=== PATIENT | male | born 1995 | race Caucasian/White ===

== ENCOUNTER 2018-05-31 23:01 | Emergency (ER) | payer MEDICAID, SELFPAY ==
[2018-05-31 23:18] VITALS: BP 139/73; PULSE 94; RESP 16; TEMP 37; O2SAT 100
[2018-05-31] MEDS: Cyclobenzaprine 10 MG TAB PO (23:40)
[2018-05-31] MEDS: Acetaminophen 500 MG TAB 1000 MG PO (23:40)
[2018-05-31] MEDS: Ketorolac 30 MG/ML VIAL IM (23:41)
[2018-05-31] MEDS: Dexamethasone 10 MG/ML VIAL IM (23:41)
[2018-05-31] MEDS: Lidocaine 5% Patch 1 PATCH TP (23:42)
--- NOTE | 2018-06-01 00:29 | ED.GENADUL_ITS ---
Discharge Plan Disposition Patient Disposition: HOME Condition: Stable Discharge Details Chief Complaint: Nk/Back Pain Clinical Impression: Lumbago, Pain in paraspinal region Primary Care Provider: NONE,NONE ED Provider: Messi Pennington Home Meds and New Rx's Prescriptions: New acetaminophen [Mapap Extra Strength] 500 MG tablet 1,000 mg PO Q6H 5 Days Qty: 60 RF: 0 lidocaine [Lidoderm] 1 PATCH patch 1 ea Topical Q24H Qty: 4 RF: 0 ibuprofen [Motrin IB] 200 MG tablet 800 mg PO Q6H 5 Days Qty: 80 RF: 0 cyclobenzaprine 10 mg tablet 10 mg PO TID Qty: 20 RF: 0 No Action pantoprazole 40 MG tablet,delayed release (DR/EC) 40 mg PO DAILY Qty: 30 RF: 0 sucralfate 1 GM/10 ML suspension 1 gm PO AC & HS Qty: 1 RF: 0 Discharge Instructions Instructions: Low Back Strain (ED) Additional Instructions: Please use a heating pad and ice on your back as often as possible. Please take medications as directed. When taking the Flexeril do not operate heavy machinery, drive vehicles, or operate firearms. Please perform regular daily stretches and massage to your lower back. Please avoid any heavy lifting greater than 10 pounds. If you notice any numbness or tingling, weakness, bowel or bladder loss of control, please return immediately. If you notice any worsening of your symptoms, or any new symptoms such as vomiting, diarrhea, fever, chills, shortness of breath, chest pain, numbness, weakness, or fainting , please return immediately to the emergency department for reevaluation. Please follow up with your primary care provider as soon as possible for reassessment and reevaluation. As always, it was a pleasure participating in your medical care today. Medical Decision Making This is a 22-year-old male with no significant past medical history who presents today for evaluation of back pain. Patient states that for the last 2-3 days he has had back pain in the paraspinal musculature area. 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 Physical exam demonstrates notable paraspinal spasms, no midline tenderness, no flank pain or CVA tenderness. He has no red flags of IV drug use, trauma, fever chills, urinary problems, abdominal pain, history of trauma or surgeries, saddle anesthesia, lower extremity weakness or decrease in his deep tendon reflex, decreased rectal tone or decreased rectal sensation. He demonstrates no signs of urinary retention on bladder scan with 6 mL's total after urinate. I feel his symptoms are secondary to musculoskeletal spasms secondary to his chronic work use. There are no red flags indicating imaging necessity at this time. Patient will be given a Lidoderm patch, Flexeril, Toradol, Decadron for management of his back pain. We discussed the importance of heating and ice, gentle stretching exercises, and close follow-up with PCP. We will set him up with a new primary care provider. The patient has had notable improvement with the medication given here, they feel he can be safely discharged home. We discussed red flags for which to return the patient understands. I have extensively reviewed the treatment plan and discharge instructions with the patient. I have addressed all patient concerns at this time. The patient was made aware of what symptoms to monitor for that would warrant a return to the emergency department. Discussed the plan with the patient, they demonstrate verbal understanding and agreement with our assessment and plan at this time. HPI General Date/Time Provider Initiated Documentation: 05/31/18 23:29 . HPI Narrative: This is a 22-year-old male with no significant past medical history who presents today for evaluation of back pain. He states that for the last 3-4 days he has had a gradual worsening lower back pain. The pain is located on the left and right of the spine, travels upwards, from his buttock and slightly downwards towards his thighs bilaterally. He states that he is on his feet all day at work as a artificial foliage arranger, and often lifts and moves around multiple objects throughout the day. His symptoms are worsened with movement, it is improved by nothing. It is not improved by sleeping or resting. He describes it is constant in nature. He does have some associated occasional tingling in the anterior and lateral thighs, but denies any numbness tingling in the groin region. He denies any bowel or bladder incontinence. He denies IV or illicit drug use. He denies any recent falls, traumas, or history of falls or traumas to the back. Patient does smoke marijuana and drink alcohol but denies any other illicit drug use. Patient denies any symptoms of fevers or chills, he denies any neck pain or neck tightness or stiffness. He denies any abdominal pain, dysuria, hematuria, or increased urinary frequency. He denies any previous surgeries, he has no other complaints at this time. He denies any pertinent family history. Related Data Home Medications Medication Instructions Recorded Confirmed pantoprazole 40 mg PO DAILY #30 tabcr 03/15/18 05/31/18 sucralfate 1 gm PO AC & HS #1 btl 03/15/18 05/31/18 acetaminophen [Mapap Extra 1,000 mg PO Q6H 5 Days #60 tab 06/01/18 Strength] cyclobenzaprine 10 mg PO TID #20 tab 06/01/18 ibuprofen [Motrin Ib] 800 mg PO Q6H 5 Days #80 tab 06/01/18 lidocaine [Lidoderm] 1 ea TOPICAL Q24H #4 patch 06/01/18 Previous Rx's Medication Instructions Recorded pantoprazole 40 mg PO DAILY #30 tabcr 03/15/18 sucralfate 1 gm PO AC & HS #1 btl 03/15/18 acetaminophen [Mapap Extra 1,000 mg PO Q6H 5 Days #60 tab 06/01/18 Strength] cyclobenzaprine 10 mg PO TID #20 tab 06/01/18 ibuprofen [Motrin Ib] 800 mg PO Q6H 5 Days #80 tab 06/01/18 lidocaine [Lidoderm] 1 ea TOPICAL Q24H #4 patch 06/01/18 Allergies Allergy/AdvReac Type Severity Reaction Status Date / Time No Known Allergies Allergy Unverified 05/31/18 23:25 General Stated Complaint: Nk/Back Pain MARY: 4 Review of Systems Review of Systems All systems reviewed & are unremarkable except as noted in HPI and below Exam Narrative Exam Narrative: 1.Const: Well-nourished, Well-developed, appearing stated age 2.Eyes: PERRL, no conjunctival injection, and symmetrical lids. 3.ENT: Atraumatic external nose and ears. Moist MM. Neck: Symmetric, trachea midline, No thyromegaly. 4.CVS: +S1/S2, No murmurs or gallops. Peripheral pulses 2+ and equal in all extremities. Brisk capillary refill in all extremities. 5.RESP: Unlabored respiratory effort. Clear to auscultation bilaterally. No wheezes rales or rhonchi 6.GI: Soft, Nontender/Nondistended, No hepatosplenomegaly. No guarding or rebound. 7.MSK: Normocephalic/Atraumatic, Extremities w/o deformity or ttp No cyanosis or clubbing, Normal movement of all extremities no midline tenderness to palpation over the CTLS spine. Normal ROM in flexion, extension, side bend, and rotation. Patient has +5 out of 5 strength in the lower extremities in dorsiflexion and plantarflexion, knee flexion and extension, hip flexion and extension. There is +2 over 2 dorsalis pedis pulses bilaterally. There is normal sensation to the skin with light touch at the foot, knee, and hip. Normal saddle sensation. Good sensation over the deep sural nerve area bilaterally. Rectal exam was performed and he demonstrated good rectal tone, and intact rectal sensation circumferentially around the anus. Reflexes are +2 over 4 in the patellar reflex bilaterally. +5 out of 5 strength in the medial, ulnar, radial nerve distribution bilaterally in the hands as well as intact light touch sensation to these dermatomes on the hands. Patient does demonstrate notable paraspinal stiffness starting at the SI joint, and moving proximally up to T12. No midline tenderness whatsoever. Mild worsening of his pain with straight leg raise bilaterally. 8.Skin: Warm, Dry. No rashes or lesions. 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 Sensation grossly intact, no focal neurologic deficits. All 6 cardinal planes of vision or fully intact. No evidence of rotatory or vertical nystagmus. There was no evidence of dysdiadochokinesia. Patient was able to ambulate without difficulty. There was no wide-based gait. Romberg, and [id number] are both normal on testing. Sensation was intact bilaterally as well as muscle strength bilaterally for all extremities. Patient was able to verbalize butter cup with no slurring, or miss pronunciation. 10.Psych: (AAO) x3. Appropriate mood and affect Course Vital Signs Temperature 37.0 C 05/31/18 23:18 Pulse 94 H 05/31/18 23:18 Respiratory Rate 16 05/31/18 23:18 Blood Pressure 139/73 05/31/18 23:18 Pulse Oximetry 100 05/31/18 23:18 Temperature 37.0 C 05/31/18 23:18 Temperature Source Temporal Artery Scan 05/31/18 23:18 Pulse 94 H 05/31/18 23:18 Respiratory Rate 16 05/31/18 23:18 Blood Pressure 139/73 05/31/18 23:18 Pulse Oximetry 100 05/31/18 23:18 Oxygen Delivery Method Room Air 05/31/18 23:18 Oxygen Flow Rate 0 05/31/18 23:18 Pain Level 9 05/31/18 23:41
[2018-06-01 00:57] LABS: Clarity Clear; Glucose Negative (Negative); Leukocyte Esterase Negative (Negative); Nitrite Negative (Negative); Specific Gravity 1.015 (1.005-1.025); pH 5.5 (5-8)
[2018-06-01 00:58] LABS: Bilirubin Negative (Negative); Blood Negative (Negative); Ketones Trace mg/dL (Negative); Urobilinogen 0.2 EU/dL (Up TO 0.2)
--- NOTE | 2018-06-02 08:51 | PDOC.ERCMPRO ---
Care Management Progress Note 06/02-Dr. Pennington requested assistance with a PCP f/u in one month for back pain. Patient does not have a PCP. Kianna Nobles supervisor conditioning yard. Referral faxed to [facility] this morning.
--- NOTE | 2018-06-02 08:52 | CMPROGNOTE_ITS ---
Care Management Progress Note 06/02-Dr. Pennington requested assistance with a PCP f/u in one month for back pain. Patient does not have a PCP. Kianna Nobles international accounting manager. Referral faxed to [facility] this morning.
== END 2018-06-01 01:12 | disposition home or self-care (01) ==
PROVIDERS: Emergency Provider Student in an Organized Health Care Education/Training Program
DX: M54.5 Low back pain (principal)
CPT/HCPCS: 96372; 99284; 81003; 99283; J1100; J1885

== ENCOUNTER 2018-10-23 13:03 | Emergency (ER) | payer MEDICAID, SELFPAY ==
[2018-10-23 13:05] VITALS: BP 141/78; PULSE 87; RESP 16; TEMP 36.3; O2SAT 99
--- NOTE | 2018-10-23 13:22 | ED.GENADUL_ITS ---
Discharge Plan Disposition Patient Disposition: HOME Condition: Stable Discharge Details Chief Complaint: Laceration Clinical Impression: Finger laceration Primary Care Provider: Marlys,Local ED Provider: Rhonda Hernandez Home Meds and New Rx's Prescriptions: Continued pantoprazole 40 MG tablet,delayed release (DR/EC) 40 mg PO DAILY Qty: 30 RF: 0 sucralfate 1 GM/10 ML suspension 1 gm PO AC & HS Qty: 1 RF: 0 Discharge Instructions Instructions: Finger Laceration (ED) Additional Instructions: Keep wound clean, dry and intact. Wash the area with soap and water and keep wound covered with dressing if risk of contamination or injury. If you notice any mild redness, swelling or pain, apply topical antibiotic ointment. Follow-up with your primary care doctor or return to the emergency department in 7 days for suture removal. Return immediately to the emergency department any worsening or new concerning symptoms. Discharge Data Discharge Date/Time-TO BE ENTERED AT DEPARTURE: 10/23/18 14:20 Discharge Physician: Rhonda Hernandez Medical Decision Making 23-year-old male who presents with left second finger laceration after cut accidentally with a clean knife while cutting a piece of plastic prior to arrival. Tetanus up-to-date. There is a 1 cm superficial straight laceration noted through and just below epidermis. No bony or tendon injury. Neurovascularly intact. 2 sutures were placed in wound due to site right over a joint. Sutures were placed by medical student with patient consent. Wound irrigated well. Antibiotic ointment and dressing applied. Patient was instructed to return to the emergency department in 7 days for suture removal. He does not have a primary care doctor. He was placed on care management list to help arrange to establish care. HPI General Mode of arrival: ambulatory . Date/Time Provider Initiated Documentation: 10/23/18 13:09 . Limitations to Documentation: no limitations . Information obtained by: patient . HPI Narrative: Patient is a 23-year-old male who presents for left second finger laceration. Patient states he was cutting a piece of plastic at home and accidentally sliced his finger. His tetanus is up-to-date last year. Related Data Home Medications Medication Instructions Recorded Confirmed pantoprazole 40 mg PO DAILY #30 tabcr 03/15/18 10/23/18 sucralfate 1 gm PO AC & HS #1 btl 03/15/18 10/23/18 Previous Rx's Medication Instructions Recorded pantoprazole 40 mg PO DAILY #30 tabcr 03/15/18 sucralfate 1 gm PO AC & HS #1 btl 03/15/18 Allergies Allergy/AdvReac Type Severity Reaction Status Date / Time No Known Allergies Allergy Unverified 10/23/18 13:11 General Stated Complaint: Laceration MARY: 4 Review of Systems Review of Systems All systems reviewed & are unremarkable except as noted in HPI and below PFSH Medical History ADHD (Acute) Cervical spine fracture (Acute) Anxiety (Chronic) Surgical History History of appendectomy (Chronic) Social History Smoking and Tabacco status: Never alcohol intake: current alcohol intake frequency: 0-2 drinks per day substance use type: marijuana Exam Const General: cooperative, healthy appearing and no acute distress HENMT Head: normal to inspection Mouth: oral mucosae normal Eyes General: appearance normal, both eyes and all related structures Neck Neck: normal visual inspection Resp Effort & Inspection: normal respiratory effort and able to speak in complete sentences Cardio Rate: regular rate Skin General skin exam: no rashes or lesions noted Neuro General: alert, awake, oriented x3, moves all extremities and no focal motor deficits Motor: muscle tone normal throughout, strength 5/5 throughout and other Sensory Exam: no sensory deficits noted Extrem Other: 1 cm straight laceration just below epidermis within dermis noted to dorsal surface of PIP joint of left second finger. No ecchymosis, edema, erythema, bony or tendon injury. Psych Appearance: grossly normal Affect: normal affect Course Vital Signs Temperature 97.3 F L 10/23/18 13:05 Pulse 87 10/23/18 13:05 Respiratory Rate 16 10/23/18 13:05 Blood Pressure 141/78 H 10/23/18 13:05 Pulse Oximetry 99 10/23/18 13:05 Temperature 97.3 F L 10/23/18 13:05 Temperature Source Temporal Artery Scan 10/23/18 13:05 Pulse 87 10/23/18 13:05 Respiratory Rate 16 10/23/18 13:05 Respiratory Effort Non-Labored 10/23/18 13:10 Blood Pressure 141/78 H 10/23/18 13:05 Blood Pressure Position Sitting 10/23/18 13:05 Pulse Oximetry 99 10/23/18 13:05 Oxygen Delivery Method Room Air 10/23/18 13:05 Oxygen Flow Rate 0 10/23/18 13:05 Pain Level 4 10/23/18 13:05 Procedures Laceration Laceration 1: Site: hand Side (If applicable): left Size (cm): 1 Description: linear Depth: simple, single layer Local Anesthetic: Lidocaine 1% Amount of anesthesia used (mL): 4 Pre-repair: wound explored, irrigated extensively and deep structures intact Skin layer closed with: nylon Size (cm): 4-0 Number of sutures: 2 Technique: simple, interrupted
[2018-10-23] MEDS: Lidocaine 1% Multi-Dose 50 ML VIAL (13:35)
[2018-10-23 14:44] VITALS: BP 141/78; PULSE 87; RESP 16; TEMP 36.3; O2SAT 99
--- NOTE | 2018-10-27 12:00 | PDOC.ERCMPRO ---
Care Management Progress Note /-Dr. Hernandez requested assistance with establishing a PCP, patient does not need an ED f/charlie Hull hotel operations manager. Referral faxed to [facility] this am.
--- NOTE | 2018-10-27 12:02 | CMPROGNOTE_ITS ---
Care Management Progress Note /-Dr. Hernandez requested assistance with establishing a PCP, patient does not need an ED f/charlie Hull quality control analyst. Referral faxed to [facility] this am.
== END 2018-10-23 14:20 | disposition home or self-care (01) ==
PROVIDERS: Emergency Provider Physician Assistant
DX: S61.211A Laceration without foreign body of left index finger without damage to nail, initial encounter (principal); W26.0XXA Contact with knife, initial encounter
CPT/HCPCS: 12001

== ENCOUNTER 2018-10-30 13:24 | Emergency (ER) | payer MEDICAID, SELFPAY ==
[2018-10-30 13:29] VITALS: BP 152/72; PULSE 97; RESP 14; TEMP 36.5; O2SAT 98
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
== END 2018-10-30 13:43 | disposition home or self-care (01) ==
PROVIDERS: Emergency Provider Emergency Medicine
DX: S61.211D Laceration without foreign body of left index finger without damage to nail, subsequent encounter (principal); W26.0XXD Contact with knife, subsequent encounter; Z48.02 Encounter for removal of sutures

== ENCOUNTER 2018-11-14 13:02 | Emergency (ER) | payer MEDICAID, SELFPAY ==
[2018-11-14 13:06] VITALS: BP 124/76; PULSE 93; RESP 18; TEMP 36.7; O2SAT 100
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
[2018-11-14] MEDS: Acetaminophen 500 MG TAB 1000 MG PO (13:58)
== END 2018-11-14 14:15 | disposition other institution (70) ==
PROVIDERS: Emergency Provider Student in an Organized Health Care Education/Training Program
DX: H53.2 Diplopia (principal); R51 Headache; W00.0XXA Fall on same level due to ice and snow, initial encounter
CPT/HCPCS: 99284; 70450; 70486